=== PATIENT | male | born 1990 | race Caucasian/White ===

== ENCOUNTER 2025-01-26 18:51 | Emergency (ER) | payer BC ==
[2025-01-26] MEDS ORDERED: Sodium Chloride 0.9% 10 ML Syringe FLUSH PRN (19:27)
[2025-01-26 19:46] LABS: BASOPHILS ABSOLUTE AUTO 0.1 K/mm3 (0.0-0.2); BASOPHILS PERCENT AUTO 0.5 % (0.0-1.0); EOSINOPHILS ABSOLUTE AUTO 0.2 K/mm3 (0.0-0.4); EOSINOPHILS PERCENT AUTO 1.7 % (0.0-6.0); HEMATOCRIT 48.8 % (42.0-52.0); HEMOGLOBIN 16.7 gm/dl (14.0-18.0); IMMATURE GRAN ABSOLUTE AUTO 0.02 K/mm3 (0.00-0.05); IMMATURE GRAN PERCENT AUTO 0.2 % (0.0-0.4); LYMPHOCYTES ABSOLUTE AUTO 2.2 K/mm3 (1.0-4.8); LYMPHOCYTES PERCENT AUTO 23.8 % (24.0-44.0); MEAN CORPUSCULAR HEMOGLOBIN 29.2 pg (28.0-32.0); MEAN CORPUSCULAR HGB CONC 34.2 g/dl (32.0-36.0); MEAN CORPUSCULAR VOLUME 85.5 fl (83.0-99.0); MEAN PLATELET VOLUME 8.9 fl (9.4-12.4); MONOCYTES ABSOLUTE AUTO 0.7 K/mm3 (0.0-0.8); MONOCYTES PERCENT AUTO 7.8 % (0.0-8.0); NEUTROPHILS ABSOLUTE AUTO 6.1 K/mm3 (1.8-7.7); PLATELET COUNT,PLT 305 K/mm3 (150-400); RED BLOOD CELL COUNT 5.71 M/mm3 (4.52-5.90)
[2025-01-26 19:51] LABS: INR 1.08; PROTHROMBIN TIME 11.4 SECONDS (9.7-12.0)
[2025-01-26 19:52] LABS: PTT,PARTIAL THROMBOPLSTIN TIME 27.7 SECONDS (21.7-31.4)
[2025-01-26 19:57] LABS: A/G RATIO 1.4 (1-2); ALBUMIN 4.6 g/dl (3.4-5.0); ANION GAP 12.3 (5-15); BILIRUBIN TOTAL 0.4 mg/dL (0.2-1.0); BUN/CREATININE RATIO 20.9 (14-18); CALCIUM 9.9 mg/dL (8.5-10.1); CREATININE 1.1 mg/dL (0.7-1.3); EST CRCL DRUG DOSING (CG) 88.47 mL/min; POTASSIUM,K 4.3 mEq/L (3.5-5.1); PROTEIN TOTAL,TP 7.9 g/dl (6.4-8.2)
[2025-01-26] MEDS ORDERED: Naloxone 0.4 MG/ML SDV IVPUSH PRN (20:09)
[2025-01-26 20:17] LABS: APPEARANCE,URINE CLEAR (Clear); BILIRUBIN,URINE NEGATIVE (Negative); COLOR,URINE YELLOW (Yellow); GLUCOSE,URINE NEGATIVE (Negative); KETONES,URINE NEGATIVE (Negative); LEUKOCYTE ESTERASE,URINE NEGATIVE (Negative); NITRITE,URINE NEGATIVE (Negative); OCCULT BLOOD,URINE NEGATIVE (Negative); PROTEIN,URINE NEGATIVE (Negative); UROBILINOGEN,URINE 0.2 (0.2-1.0)
[2025-01-26] MEDS: HYDROmorphone 0.5 MG/0.5 ML Syringe IVPUSH ONE (20:20)
[2025-01-26] MEDS: Iopamidol 612 MG/ML 100 ML Bottle IVPUSH ONE (20:54)
[2025-01-26] MEDS: Ondansetron 4 MG/2 ML SDV IVPUSH ONE (21:37)
[2025-01-26] MEDS: Sodium Chloride 0.9% 1,000 ML IV ONE (22:23)
== END 2025-01-26 23:17 | disposition home or self-care (01) ==
LOC: MERGE 18:51 → JD.ED 18:51
DX: S06.0X1A Concussion with loss of consciousness of 30 minutes or less, initial encounter (principal); S22.029A Unspecified fracture of second thoracic vertebra, initial encounter for closed fracture; Z79.899 Other long term (current) drug therapy; W17.89XA Other fall from one level to another, initial encounter; Y93.89 Activity, other specified
CPT/HCPCS: 36415; 70450; 71260; 72125; 72128; 72131; 74177; 80053; 81003; 85025; 85610; 85730; 96374; 96375; 99284; J2405; J7030; Q9967; 99283